=== PATIENT | female | born 1935 | race Native Hawaiian/Other Pacific Islander ===

== ENCOUNTER → 2016-09-25 | Outpatient (CLI) | payer MEDICARE, OTHER ==
[~2016-09-25] VITALS: Ht 157.5 cm; Wt 55.0 kg
[~2016-09-25] MED LIST: ATOR20TA86 PO; CARV25 PO; FURO40 PO; WARF2.5 PO
[2016-09-25 10:57] VITALS: BP 141/70
== END | disposition home or self-care (01) ==
LOC: SRCNTR 10:36
PROVIDERS: ATTEND Internal Medicine Clinical Cardiac Electrophysiology
DX: Z45.02 Encounter for adjustment and management of automatic implantable cardiac defibrillator (principal); E78.00 Pure hypercholesterolemia, unspecified; I48.0 Paroxysmal atrial fibrillation; I11.0 Hypertensive heart disease with heart failure; I50.9 Heart failure, unspecified; Z79.01 Long term (current) use of anticoagulants; Z86.73 Personal history of transient ischemic attack (TIA), and cerebral infarction without residual deficits
CPT/HCPCS: G0463

== ENCOUNTER → 2017-05-14 | Outpatient (CLI) | payer MEDICARE, MEDICAID | END | disposition home or self-care (01) | LOC: RADPV 12:45 | PROVIDERS: ATTEND Internal Medicine | DX: I35.1 Nonrheumatic aortic (valve) insufficiency (principal); I25.10 Atherosclerotic heart disease of native coronary artery without angina pectoris; I25.5 Ischemic cardiomyopathy; Z95.810 Presence of automatic (implantable) cardiac defibrillator; Z95.5 Presence of coronary angioplasty implant and graft | CPT/HCPCS: 93306 ==

== ENCOUNTER → 2017-10-01 | Outpatient (CLI) | payer MEDICARE, MEDICAID ==
[~2017-10-01] VITALS: Ht 157.5 cm; Wt 55.0 kg
[2017-10-01 11:06] VITALS: BP 143/84
== END | disposition home or self-care (01) ==
LOC: SRCNTR 10:53
PROVIDERS: ATTEND Internal Medicine Clinical Cardiac Electrophysiology
DX: Z45.02 Encounter for adjustment and management of automatic implantable cardiac defibrillator (principal); I11.0 Hypertensive heart disease with heart failure; I50.9 Heart failure, unspecified; E78.00 Pure hypercholesterolemia, unspecified; I48.0 Paroxysmal atrial fibrillation; Z86.73 Personal history of transient ischemic attack (TIA), and cerebral infarction without residual deficits
CPT/HCPCS: G0463

== ENCOUNTER → 2017-12-31 | Outpatient (CLI) | payer MEDICARE, MEDICAID ==
[~2017-12-31] VITALS: Ht 157.5 cm; Wt 53.5 kg
[2017-12-31 12:18] VITALS: BP 146/73
== END | disposition home or self-care (01) ==
LOC: SRCNTR 11:15
PROVIDERS: ATTEND Internal Medicine Clinical Cardiac Electrophysiology
DX: I11.0 Hypertensive heart disease with heart failure (principal); I50.9 Heart failure, unspecified; E78.5 Hyperlipidemia, unspecified; E78.00 Pure hypercholesterolemia, unspecified
CPT/HCPCS: G0463